=== PATIENT | male | born 1965 | race African-American/Black ===

== ENCOUNTER → 2020-05-27 | Outpatient (CLI) | payer BC | END | disposition home or self-care (01) | LOC: RAD 10:42 | PROVIDERS: ATTEND Family Medicine | DX: I67.82 Cerebral ischemia (principal); G45.9 Transient cerebral ischemic attack, unspecified | CPT/HCPCS: 70551 ==

== ENCOUNTER → 2020-09-25 | Outpatient (CLI) | payer BC ==
[2020-09-27 08:06] LABS: % FREE PSA 16.8 % (.); PROSTATE SPECIFIC AG TOTAL 3.7 ng/mL (0.0-4.0); PSA FREE 0.62 ng/mL
== END | disposition home or self-care (01) ==
LOC: LAB 11:38
PROVIDERS: ATTEND Specialist
DX: R97.20 Elevated prostate specific antigen [PSA] (principal)
CPT/HCPCS: 36415; 84153; 84154; G0103

== ENCOUNTER → 2023-09-28 | Outpatient (CLI) | payer BC | END | disposition home or self-care (01) | LOC: US 13:15 | DX: N28.1 Cyst of kidney, acquired (principal); R97.20 Elevated prostate specific antigen [PSA]; M16.0 Bilateral primary osteoarthritis of hip; N40.0 Benign prostatic hyperplasia without lower urinary tract symptoms | CPT/HCPCS: 72195; 76770 ==

== ENCOUNTER → 2024-09-20 | Outpatient (CLI) | payer BC ==
[2024-09-20 07:07] LABS: EOSINOPHILS % 2.8 % (0.0-5.0); HEMATOCRIT. 49.5 % (42.0-52.0); HEMOGLOBIN. 16.4 g/dL (14.0-18.0); LYMPHOCYTES % 44.2 % (20.0-50.0); MEAN CORPUSCULAR HEMOGLOBIN 29.8 pg (28.0-32.0); MEAN CORPUSCULAR HGB CONC 33.2 g/dL (31.0-37.0); MEAN CORPUSCULAR VOLUME 89.8 fL (80.0-94.0); MEAN PLATELET VOLUME 8.5 fl (7.4-10.4); MONOCYTES % 12.3 % (2.0-8.0); NEUTROPHILS % 39.7 % (40.0-76.0); PLATELET 154 x1000/uL (130-400); RED BLOOD CELL COUNT 5.51 mill/uL (4.7-6.1); RED CELL DISTRIBUTION WIDTH 13.6 % (11.6-14.6); WHITE BLOOD COUNT 5.1 x1000/uL (4.5-11.0)
[2024-09-20 07:12] LABS: CARBON DIOXIDE 29 mEq/L (21-32); CHLORIDE 108 mEq/L (98-107); POTASSIUM 4.1 mEq/L (3.5-5.1); SODIUM 142 mEq/L (136-145)
[2024-09-20 07:13] LABS: CALCIUM 9.8 mg/dL (8.7-10.4)
[2024-09-20 07:18] LABS: CREATININE 1.1 mg/dL (0.6-1.3); GLUCOSE 97 mg/dL (70-105); TRIGLYCERIDE 148 mg/dL (0-150); UREA NITROGEN BLOOD 8 mg/dL (9-23)
[2024-09-20 07:19] LABS: ALANINE AMINOTRANSFERASE 18 IU/L (10-49); LDL CHOLESTEROL 79 mg/dL (5-100)
[2024-09-20 07:20] LABS: ASPARTATE AMINOTRANSFERASE 19 IU/L (<34); BILIRUBIN TOTAL 0.4 mg/dL (0.1-1.0); CHOLESTEROL 133 mg/dL (<200); HDL CHOLESTEROL 33 mg/dL (>55); PROTEIN TOTAL 6.9 g/dL (6.0-8.3)
[2024-09-20 07:22] LABS: THYROID STIMULATING HORMONE 1.34 uIU/mL (0.55-4.78)
== END | disposition home or self-care (01) ==
LOC: LAB 06:33
PROVIDERS: ATTEND Family Medicine
DX: Z00.00 Encounter for general adult medical examination without abnormal findings (principal)
CPT/HCPCS: 36415; 80053; 80061; 83036; 84443; 85025